=== PATIENT | female | born 2005 | race Two or more races ===

== ENCOUNTER 2025-01-26 07:25 | Inpatient (IN) | payer MEDICAID, SELFPAY ==
[2025-01-26] VITALS (20 sets, daily range): BP systolic 108–132; BP diastolic 64–87; PULSE 67–95; RESP 16–18; TEMP 36.7–37.2; O2SAT 98–99; BMI 34.3; BMI 34.7
--- NOTE | 2025-01-26 08:15 | XR_ITS ---
Examination: Biophysical profile, ultrasound Date and time of exam: January 26, 2025 0848 hours INDICATIONS: Vaginal bleeding and pelvic contractions beginning this morning Technique: Multiple transabdominal sonographic images of the pelvis abdomen obtained. Attention is directed to the breathing movement, gross body movement, amniotic fluid volume and tone. Findings: Amniotic fluid index 4.5 cm Total biophysical profile is 7 of 8. breathing movement is 2. Gross body movement is 2. tone is 1 Qualitative amniotic fluid volume is 2 Impression: Biophysical profile is 7 of 8.
--- NOTE | 2025-01-26 08:15 | XR_ITS ---
Examination: Complete OB ultrasound greater than 14 weeks Date and time of exam: January 26, 2025 0837 hours INDICATIONS: Vaginal bleeding and pelvic contractions beginning this morning Findings: Viable intrauterine single fetus with single amniotic sac presentation cephalic Cardiac motion 137 BPM Placenta fundal grade 3 Umbilical cord insertion seen Amniotic fluid index 4.4 cm Cervix 3.2 cm Ovaries obscured by the fetus. Composite estimated gestational age based on BPD, head circumference, abdominal circumference, femur length is 35 weeks 1 day Estimated weight 2637.6 g. Survey of intracranial anatomy, spinal anatomy, abdominal anatomy, four-chamber heart performed with no abnormalities identified. Impression: Viable intrauterine gestation cephalic presentation.
[2025-01-26] MEDS: RINGERS LACTATED 1000 ML 1,000 ML 999 ML IV (08:40)
--- NOTE | 2025-01-26 09:52 | PD.LDHP ---
Documentation for date of: 01/26/25 OB Labor/Induct. HPI History of Present Illness Chief complaint: 19 y/o 39w 3d presents to L&D in labor. : 1 Para: 0 Term pregnancies: 0 pregnancies: 0 Living children: 0 History of Abortions: Spontaneous and Elective: 0 History of Vaginal deliveries: 0 History of sections: No History of : No BRAXTON: 01/30/25 Gestational Age (weeks): 39 Gestational Age (days): 3 History of present illness: 19 y/o 39w 3d presents to L&D in labor. Cervix is 3/90/-2 vertex, membranes intact. GBS is neg, has been uncomplicated other than obesity. EFW 3000g History of Present Dating criteria: LMP confirmed by 1st trimester US Adequate Care: Yes Ultrasounds: normal 1st trimester US and normal mid trimester US Obstetrical complications: none Medical complications: other (Obesity ) Labs Maternal Blood Type: O Pos Labs: Positive: Rubella Titre, Negative: RPR, Hepatitis B, HIV, Chlamydia, Gonorrhea and Group Beta Strep and Unknown: Herpes Type 1, Herpes Type 2 and Covid-19 Review of Systems Review of Systems Systems Reviewed: All systems reviewed, normal except as documented Past Medical History Surgical History SURGICAL: Negative Section Meds Home Medications and Allergies Home Medications ?Medication ?Instructions ?Recorded ?Confirmed ?Type vits no.126-ferrous fum tab 01/26/25 History 28 mg iron-folic acid 800 mcg tablet (Classic ) Allergies Allergy/AdvReac Type Severity Reaction Status Date / Time No Known Allergies Allergy Verified 01/26/25 07:50 OB Exam Physical Exam Vital signs: Temp Pulse Resp BP Pulse Ox 98.9 F 69 18 110/64 98 01/26/25 07:30 01/26/25 09:12 01/26/25 07:30 01/26/25 09:12 01/26/25 09:47 Constitutional Constitutional: mild distress (Secondary to painful contractions) Routine HEENT Exam Head: Present normocephalic and atraumatic Eye: Present EOMI, PERRL and normal accommodation ENT: Present mucous membranes moist Routine Neck Exam Neck: Present full ROM Routine Respiratory Exam Respiratory: Absent respiratory distress Routine Cardiovascular Exam Cardiovascular: Present RRR Routine Abdominal Exam Abdominal: Present soft and normoactive bowel sounds Comments: Gravid Uterus EFW 3000g Routine Exam External: Present normal urethra appearance; Absent lesions or lacerations Detailed Labor and Delivery Exam Dilation (cm): 3 Effacement (%): 90 Cervix position: posterior station: -2 Consistency: soft Presentation: Vertex (Per RN exam) Membranes: intact Baseline heart rate: 140 monitor accelerations: 15x15 monitor decelerations: Variable retirement variability: Moderate (11-25) Contraction frequency (min): 2-4 Routine Extremities Exam Extremities: Present full ROM Routine Back/Spine/Pelvis Exam Back/Spine: Present full ROM Routine Skin Exam Skin: Present intact, dry and warm Routine Neurological Exam Neurological: Present alert, oriented X3 and CN II-XII intact Routine Psychiatric Exam Psychiatric: Present normal affect and normal thought process OB Results Labs 01/26/25 09:10 OB Assessment & Plan Assessment and Plan (1) Normal labor: Status: Acute (2) with 39 completed weeks gestation: Status: Acute (3) Obesity (BMI 35.0-39.9 without comorbidity): Status: Inactive Additional Plan Induction method: none Plan: anticipate NVD and consult prn Additional Plan Comment: Routine admit orders Continuous EFM
--- NOTE | 2025-01-26 09:57 | PD.LDPN ---
Documentation for date of: 01/26/25 OB Labor Progress Note Pain Control Pain control: other (Requesting an epidural) Pelvic Exam Dilation (cm): 5 Effacement (%): 90 station: -1 Amniotic membrane status: Ruptured (clear) Contractions Monitor mode: External Contraction frequency: 2-4 Contraction duration: 40-60 Contraction intensity: Mild Status status: Category l Assessment and Plan Assessment: active labor Plan OB labor note: continuous present management Comments: Pt is progressing quickly and will try to get an epidural Anticipate Updated Dr. Sifuentes
[2025-01-26 10:05] LABS: Basophils # (Auto) 0.0 Thou/mm3 (0.0-0.2); Basophils % (Auto) 0 % (0-2.5); Eosinophils # (Auto) 0.0 Thou/mm3 (0.0-0.5); Eosinophils % (Auto) 0 % (0-10); Hematocrit 35.2 % (36.0-46.0); Hemoglobin 11.8 g/dL (12.0-16.0); Immature Granulocytes Auto 0.15 Thou/mm3 (0.00-0.00); Lymphocytes # (Auto) 1.5 Thou/mm3 (1.0-4.8); Lymphocytes % (Auto) 16 % (10-50); Mean Corpuscular HGB Conc 33.5 g/dl (31.0-37.0); Mean Corpuscular Hemoglobin 32.6 pg (25.0-35.0); Mean Corpuscular Volume 97 fL (80-100); Monocytes # (Auto) 0.4 Thou/mm3 (0.0-0.8); Monocytes % (Auto) 4 % (0-12); Neutrophils # (Auto) 7.5 Thou/mm3 (1.8-7.7); Neutrophils % (Auto) 78 % (37-80); Nucleated Red Blood Cell # 0.00 Thou/mm3 (0.00-0.00); Nucleated Red Blood Cell % 0 /100 WBC (0); Platelet Count 221 Thou/mm3 (140-440); RDW Standard Deviation 49.9 fL (36.4-46.3); Red Blood Count 3.62 Miln/mm3 (4.00-5.20); White Blood Count 9.7 Thou/mm3 (3.6-11.0)
[2025-01-26] MEDS: OXYTOCIN in NS 20 units 20 UNIT/1,000 ML BAG 125 UNIT IV (10:25)
[2025-01-26] MEDS: MINERAL OIL 30 ML UDC TOP (10:28)
[2025-01-26] MEDS: BENZO/LANO/ALOE (Dermoplast) 60 GM CAN 1 SPRAY TOP (10:29)
[2025-01-26 10:31] LABS: Syphilis Nonreactive (Nonreactive)
--- NOTE | 2025-01-26 10:35 | OBDSUM_ITS ---
Data ([facility]) Data Hx Section: No Maternal Blood Type: O Pos Rubella Titre: Positive RPR: Non-reactive Labs: Negative: RPR, Hepatitis B, HIV, Chlamydia, Gonorrhea and Group Beta Strep and Unknown: Herpes Type 1 and Herpes Type 2 : 1 Para: 0 Term: 0 : 0 Livin Abortions: Spontaneous & Theraputic: 0 Delivery Data ([facility]) Labor Data Initiation of labor: Spontaneous Induction/Augmentation Agent: None ROM date: 01/26/25 ROM time: 09:41 Amniotic membrane rupture type: Artificial Amniotic fluid description: Clear Delivery Data EDC: 01/30/25 EDC calculated by:: LMP/early US confirmation Onset of labor date: 01/26/25 Onset of labor time: 09:15 Complete dilation date: 01/26/25 Complete dilation time: 10:13 delivery date: 01/26/25 [place] delivery time: 10:21 Gestational age (weeks): 39 Gestational age (days): 3 Placenta delivery date: 01/26/25 Placenta delivery time: 10:25 Stage 1 total time: Labor - Stage 1 Duration 58 minutes Delivered by: Dior Honeycutt Delivery nurse: MUNA Ford nurse: SUSAN RM [employer] App[employer] Installer at delivery: No Support person(s) at delivery: SISTER OF PATIENT Other staff at delivery: DANITA LANCE Delivery Method Delivery method: Normal Vaginal Delivery Presentation: Vertex position: OA Anesthesia Type Anesthesia Type: None Anesthesia type: None Delivery Room Medications Delivery room medications: Pitocin 20 u IV Placenta Placenta delivery description: Spontaneous Cord blood sent to lab: Yes cord blood collection: Cord Blood Type Episiotomy Episiotomy description: None EBL Estimated blood loss (ml): 100 Umbilical Cord cord description: 3 Vessels [place] Data ([facility]) Data order: 1 's gender: Female weight (gms): 2770 g 1 minute: 9 5 minutes: 9 Additional Comments Additional comments: Upon CNM's arrival to the room patient was already complete. Bed was broken with prep for delivery patient pushed 1 time and had an of a viable female . Infant's anterior shoulder delivered with gentle downward traction subsequent deliver the posterior shoulder and the body without complications. Infant placed on mother's abdomen. Vigorous cry upon delivery. Cord was clamped. Cord blood obtained. Three-vessel cord noted. Placenta expelled s pontaneously and intact. No lacerations noted. Perineum intact. Excellent hemostasis achieved after vigorous fundal massage and removal of clots from the posterior fornix. EBL is 100. Sponge and needle count correct. Mother and baby stable, [id number] and bonding in LDR.
[2025-01-26] MEDS: IBUPROFEN TAB 400 MG TABLET 800 MG PO (10:38)
[2025-01-26 16:57] LABS: Basophils # (Auto) 0.0 Thou/mm3 (0.0-0.2); Basophils % (Auto) 0 % (0-2.5); Eosinophils # (Auto) 0.0 Thou/mm3 (0.0-0.5); Eosinophils % (Auto) 0 % (0-10); Hematocrit 34.8 % (36.0-46.0); Hemoglobin 12.0 g/dL (12.0-16.0); Immature Granulocytes Auto 0.16 Thou/mm3 (0.00-0.00); Lymphocytes # (Auto) 1.4 Thou/mm3 (1.0-4.8); Lymphocytes % (Auto) 11 % (10-50); Mean Corpuscular HGB Conc 34.5 g/dl (31.0-37.0); Mean Corpuscular Hemoglobin 32.2 pg (25.0-35.0); Mean Corpuscular Volume 93 fL (80-100); Monocytes # (Auto) 0.6 Thou/mm3 (0.0-0.8); Monocytes % (Auto) 5 % (0-12); Neutrophils # (Auto) 10.1 Thou/mm3 (1.8-7.7); Neutrophils % (Auto) 83 % (37-80); Nucleated Red Blood Cell # 0.00 Thou/mm3 (0.00-0.00); Nucleated Red Blood Cell % 0 /100 WBC (0); Platelet Count 228 Thou/mm3 (140-440); RDW Standard Deviation 46.5 fL (36.4-46.3); Red Blood Count 3.73 Miln/mm3 (4.00-5.20); White Blood Count 12.3 Thou/mm3 (3.6-11.0)
[2025-01-27 03:46] VITALS: BP 123/80; PULSE 75; RESP 16; TEMP 36.6; O2SAT 98
--- NOTE | 2025-01-27 07:27 | ESDS_ITS ---
DS: Providers Provider Date of admission: 01/26/25 09:20 Primary care physician: Physician No Primary/Family Admitting Provider: Yusef Sifuentes MD Attending Provider on Admission: Dior Honeycutt CNM Attending Provider on DC: Dior Honeycutt CNM Discharging Provider: Dior Honeycutt CNM Anticipated date of discharge: 01/27/25 DS: Diagnosis Discharge Diagnosis (1) Normal spontaneous vaginal delivery: Status: Acute (2) Encounter for care of lactating mother: Status: Acute (3) Normal labor: Status: Acute (4) with 39 completed weeks gestation: Status: Acute Problem List Completed Was Problem List Reviewed/Reconciled?: Yes Summary/Hosp Course Brief History: 19 y/o 39w 3d presents to L&D in labor. Cervix is 3/90/-2 vertex, membranes intact. GBS is neg, has been uncomplicated other than obesity. EFW 3000g 01/26/25: Upon JUSM's arrival to the room patient was already complete. Bed was broken with prep for delivery patient pushed 1 time and had an of a viable female infant. 's anterior shoulder delivered with gentle downward traction subsequent deliver the posterior shoulder and the body without complications. placed on mother's abdomen. Vigorous cry upon delivery. Cord was clamped. Cord blood obtained. Three-vessel cord noted. Placenta expelled spontaneously and intact. No lacerations noted. Perineum intact. Excellent hemostasis achieved after vigorous fundal massage and removal of clots from the posterior fornix. EBL is 100. Sponge and needle count correct. Mother and baby stable, [id number] and bonding in LDR. 01/27/25: PPD#1 patient is stable and afebrile doing well and . Denies dizziness shortness of breath. No problems ambulating and voiding. Passing gas. No bowel movement as of yet. Breast-feeding and bonding well with . Uterus is nontender fundus firm minimal lochia. Discharge instructions given. Patient to follow-up with Dior Honeycutt CNM in 3 weeks Peripartum Data Delivery Method: Normal Vaginal Delivery Episiotomy Description: None Laceration Description: no complications: none [place] 1: Gender: Female Disposition of : home Status at Discharge Cognitive/behavioral status at discharge: Alert and oriented x 3 Functional status at discharge: independent ambulation Overall status at discharge: patient is progressing back to baseline Time Spent with Patient Time attestation: Total time spent providing and/or coordinating discharge services: Time spent: Greater than 30 minutes Exam Vital Signs Temp Pulse Resp BP Pulse Ox 98.9 F 88 18 120/74 99 01/26/25 07:30 01/26/25 10:32 01/26/25 07:30 01/26/25 10:32 01/26/25 10:17 Constitutional Constitutional: no acute distress Routine HEENT Exam Head: Present normocephalic and atraumatic Eye: Present EOMI, PERRL and normal accommodation ENT: Present mucous membranes moist Routine Neck Exam Neck: Present full ROM Routine Respiratory Exam Respiratory: Present chest non-tender, lungs clear, normal breath sounds and no resp distress Routine Cardiovascular Exam Cardiovascular: Present RRR Routine Abdominal Exam Abdominal: Present soft and normoactive bowel sounds Routine Exam Patient deferred: external exam Comments: Lochia is normal Routine Extremities Exam Extremities: Present full ROM, pulses intact and normal capillary refill; Absent calf tenderness or tenderness Routine Back/Spine/Pelvis Exam Back/Spine: Present full ROM Routine Skin Exam Skin: Present intact, dry and warm Routine Neurological Exam Neurological: Present alert, oriented X3 and CN II-XII intact Routine Psychiatric Exam Psychiatric: Present normal affect and normal thought process Discharge Plan Plan Patient Disposition: HOME (Self Care) Patient condition on transfer: Stable Prescriptions/Referrals Prescriptions/Med Rec: New docusate sodium [Colace] 100 mg capsule 100 mg PO BID Qty: 60 0RF ibuprofen 600 mg tablet 600 mg PO Q6H PRN (Reason: pain) Qty: 90 0RF lanolin 50 % ointment 1 applic topical TID PRN (Reason: skin irritation) Qty: 15 0RF Continued Classic 28 mg iron- 800 mcg tablet Patient Comments: TOME 1 TABLETA POR VIA ORAL TODOS LOS DIOP FOR 30 DAYS Referrals: No Primary/Family,Physician [Primary Care Provider] - Patient/Caregiver Discharge Instructions Meds to Beds: No Discharge Activity: activity as tolerated Other Discharge Activity Instructions:: Follow-up with Dior Honeycutt CNM in 3 weeks Education Materials: How to Breastfeed, After Delivery [place] Concerns, : Caring for Yourself Print Language: Mosotho Stand Alone Forms: Mikala Award Info., Patient Portal Info Letter Discharge Order Discharge Orders: Discharge (Routine); Ordered 01/27/25 Ordered By: Dior Honeycutt Planned Discharge Date 01/27/25
[2025-01-27 07:40] VITALS: BP 126/84; PULSE 80; RESP 16; TEMP 36.7; O2SAT 97
[2025-01-27] MEDS: DOCUSATE SOD 100 MG CAPSULE PO (09:06)
[2025-01-27 12:00] VITALS: BP 127/77; PULSE 78; RESP 19; TEMP 36.9; O2SAT 97
== END 2025-01-27 19:40 | disposition home or self-care (01) | DRG 560 ==
LOC: S4SX 10:54 → S4NX 12:35
PROVIDERS: Admitting Provider Student in an Organized Health Care Education/Training Program; Visit Provider Nurse Practitioner Women's Health
DX: O99.214 Obesity complicating childbirth (principal); Z37.0 Single live birth; Z3A.39 39 weeks gestation of pregnancy
CPT/HCPCS: 36415; 59025; 76805; 76819; 85025; 86780; 86850; 86900; 86901; J2590; J7120; A9270